=== PATIENT | female | born 1950 | race Caucasian/White ===

== ENCOUNTER 2022-06-12 09:09 | Outpatient (CLI) | payer MEDICARE, MEDICAID ==
[2022-06-12] VITALS (9 sets, daily range): BP systolic 101–134; BP diastolic 43–68
[~2022-06-12] VITALS: Ht 154.9 cm; Wt 91.3 kg
[2022-06-12] MEDS ORDERED: aminophylline 250mg/10ml inj. IV PRN (10:15)
[2022-06-12] MEDS ORDERED: regadenoson 0.4mg/5ml syringe IV ONE (10:15)
[2022-06-12] MEDS ORDERED: nitroGLYCERIN 0.4mg SUBLingual tab SL PRN (10:15)
[2022-06-12] MEDS ORDERED: normal saline 500ml IV soln 500 ML IV ONE (10:15)
== END 2022-06-12 23:59 | disposition home or self-care (01) ==
LOC: RAD 09:09
PROVIDERS: ATTEND Internal Medicine Interventional Cardiology
DX: Z01.810 Encounter for preprocedural cardiovascular examination (principal)
CPT/HCPCS: 78452; 93017; A9500; J2785; J7040; J0280